=== PATIENT | female | born 1980 ===

== ENCOUNTER → 2024-05-29 | Outpatient (CLI) | payer SELFPAY ==
[2024-05-29 10:29] LABS: BASO % 0.5 % (0.0-1.0); EOS # 0.1 10*3/uL (0.0-0.4); EOS % 1.2 % (1.0-4.0); HEMATOCRIT 32.6 % (37.0-47.0); MEAN CELL VOLUME 89.8 fl (81.0-99.0); MEAN CORPUSCULAR HGB 30.9 pg (27.0-31.0); MEAN CORPUSCULAR HGB CONC 34.4 g/dl (33.0-37.0); MEAN PLATELET VOLUME 8.7 fl (9.6-12.3); MONO # 0.2 10*3/uL (0.1-1.0); MONO % 4.2 % (3.0-9.0); NEUT # 3.4 10*3/uL (2.3-7.9); NEUT % 58.8 % (47.0-73.0); PLATELET COUNT AUTOMATED 254 10*3/uL (130-400); RED BLOOD COUNT 3.63 10*6/uL (4.10-5.10); WHITE BLOOD COUNT 5.7 10*3/uL (4.8-10.8)
[2024-05-29 10:34] LABS: BILIRUBIN Negative (Negative); BLOOD Negative (Negative); CLARITY Clear (Clear); COLOR Yellow (Yellow); GLUCOSE Negative (Negative); KETONE Negative (Negative); LEUKO ESTERASE 2+ (Negative); NITRITE Negative (Negative); UROBILINOGEN 0.2 E.U./dl (0.0-1.0)
[2024-05-29 10:45] LABS: BACTERIA 1+; RBC 0-2 rbc/hpf (0-2)
[2024-05-30 07:06] LABS: VARICELLA ZOSTER (VZV) IgG Non Reactive (Non Reactive)
[2024-05-30 18:07] LABS: BARBITURATE, URINE Negative ng/mL (Cutoff=200); CANNABINOID, URINE Negative ng/mL (Cutoff=20); CREATININE, UR 128.6 mg/dL (20.0-300.0); PH URINE 5.9 (4.5-8.9)
[2024-05-30 19:07] LABS: HEPATITIS C QNT HCV Not Detected IU/mL (.)
== END | disposition home or self-care (01) ==
LOC: US 05-23 12:00 → LAB 05-23 12:05
PROVIDERS: ATTEND Nurse Practitioner Women's Health
DX: O34.11 Maternal care for benign tumor of corpus uteri, first trimester (principal); Z36.9 Encounter for antenatal screening, unspecified; D25.2 Subserosal leiomyoma of uterus; Z3A.13 13 weeks gestation of pregnancy